=== PATIENT | male | born 1995 | race African-American/Black ===

== ENCOUNTER 2020-02-24 01:53 | Inpatient (IN) | payer MEDICAID, SELFPAY ==
[~2020-02-24] VITALS: Ht 175.3 cm; Wt 74.8 kg
[2020-02-24 02:00] VITALS: BP 138/79
[2020-02-24 03:03] LABS: APPEARANCE,URINE CLEAR (CLEAR); BILIRUBIN,URINE NEGATIVE (NEGATIVE); BLOOD, URINE NEGATIVE (NEGATIVE); COLOR,URINE YELLOW (YELLOW); LEUKOCYTE ESTERASE ,URINE NEGATIVE (NEGATIVE); NITRITE, URINE NEGATIVE (NEGATIVE); UGLUCOSE NEGATIVE (NEGATIVE)
[2020-02-24 03:03] LABS: ALBUMIN 4.5 g/dL (3.4-5.0); ANION GAP 12.6 (8-16); BASOPHILS % (AUTO) 0.7 % (0.0-2.0); CARBON DIOXIDE 30.3 mmol/L (21-32); CREATININE 1.1 mg/dL (0.6-1.3); EOSINOPHILS # (AUTO) 0.2 K/uL (0-0.4); EOSINOPHILS % (AUTO) 2.6 % (0.0-4.0); HEMATOCRIT 45.1 % (36-52); HEMOGLOBIN 14.7 g/dL (12.0-18.0); LYMPHOCYTES # (AUTO) 1.6 K/uL (2.0-11.5); LYMPHOCYTES % (AUTO) 23.2 % (20.5-51.1); MEAN CORPUSCULAR HEMOGLOBIN 27 pg (27-31); MEAN CORPUSCULAR HGB CONC 33 g/dL (33-37); MEAN CORPUSCULAR VOLUME 83.2 fL (80-94); MONOCYTES # (AUTO) 0.9 K/uL (0.8-1.0); MONOCYTES % (AUTO) 12.9 % (1.7-9.3); NEUTROPHILS # (AUTO) 4.1 K/uL (1.8-7.7); NEUTROPHILS % (AUTO) 60.6 % (42.2-75.2); PLATELET COUNT (AUTO) 352 K/uL (140-450); POTASSIUM 3.9 mmol/L (3.5-5.1); RED BLOOD CELL COUNT(AUTO) 5.42 MIL/uL (4.20-6.10); RED CELL DISTRIBUTION WIDTH 14.5 % (11.6-13.7); THYROID STIMULATING HORMONE 1.41 uIU/mL (0.34-3.74); TOTAL BILIRUBIN 0.8 mg/dL (0.0-1.0); WHITE BLOOD COUNT (AUTO) 6.8 K/uL (4.8-10.8)
[2020-02-24 03:11] LABS: BARBITURATE, URINE NEGATIVE ng/ml (NEG <=200); BENZODIAZEPINE, URINE NEGATIVE ng/mL (NEG <=200); CANNABINOID, URINE NEGATIVE ng/mL (NEG <=50); COCAINE, URINE POSITIVE ng/mL (NEG <=300); OPIATE, URINE NEGATIVE ng/mL (NEG <=2000); PHENCYCLIDINE SCREEN,URINE NEGATIVE ng/mL (NEG <=25)
[2020-02-24] MEDS ORDERED: OLANZapine 5 MG TAB PO SCH ×2 (04:15→21:00)
[2020-02-24] MEDS ORDERED: OLANZapine 5 MG ODT ONE (04:30)
[2020-02-24] MEDS ORDERED: OLANZapine 5 MG ODT SL ONE (04:30)
[2020-02-24] MEDS: OLANZapine 5 MG TAB PO SCH (20:59)
[2020-02-25 04:15] VITALS: BP 108/62
[2020-02-25 08:00] VITALS: BP 110/68
[2020-02-25] MEDS: OLANZapine 5 MG TAB PO SCH ×2 (09:06→21:08)
[2020-02-25] MEDS: ESCITALOPRAM 20 MG TAB PO SCH (09:06)
[2020-02-25] MEDS: NACL 0.9% 1,000 ML IV SCH (15:09)
[2020-02-25] MEDS ORDERED: MORPHINE SULFATE 2 MG/ML SYR IVP PRN (15:10)
[2020-02-25] MEDS ORDERED: LORazepam 2 MG/ML VIAL IM/IVP PRN (15:10)
[2020-02-25] MEDS ORDERED: ACETAMINOPHEN 325 MG TAB PO PRN (15:10)
[2020-02-25] MEDS ORDERED: ZOLPIDEM 5 MG TAB PO PRN (15:10)
[2020-02-25] MEDS ORDERED: DOCUSATE SODIUM 100 MG GELCAP PO PRN (15:10)
[2020-02-25] MEDS ORDERED: HYDROcodone/APAP 5/325 MG 1 TAB TAB PO PRN (15:10)
[2020-02-25] MEDS ORDERED: ONDANSETRON 4 MG/2 ML VIAL IM/IVP PRN (15:10)
[2020-02-25] MEDS ORDERED: POTASSIUM CHLORIDE 10 MEQ TABER PO PRN (15:15)
[2020-02-25] MEDS ORDERED: MAG SULF 2000 MG/WATER PREMIX 50 ML IV PRN (15:15)
[2020-02-25 16:00] VITALS: BP 118/69
[2020-02-26] VITALS: BP 125/71
[2020-02-26] MEDS: NACL 0.9% 1,000 ML IV SCH (07:49)
[2020-02-26 08:33] VITALS: BP 101/44
[2020-02-26] MEDS: OLANZapine 5 MG TAB PO SCH ×2 (12:30→21:57)
[2020-02-26] MEDS: ESCITALOPRAM 20 MG TAB PO SCH (12:31)
[2020-02-26 16:30] VITALS: BP 118/67
[2020-02-27] VITALS: BP 103/58
[2020-02-27] MEDS: NACL 0.9% 1,000 ML IV SCH ×2 (00:29→16:02)
[2020-02-27 08:00] VITALS: BP 95/50
[2020-02-27] MEDS: ESCITALOPRAM 20 MG TAB PO SCH (08:24)
[2020-02-27] MEDS: OLANZapine 5 MG TAB PO SCH ×2 (08:24→21:55)
[2020-02-27] MEDS ORDERED: METOCLOPRAMIDE 10 MG/2 ML INJ VIAL IVP PRN (10:30)
[2020-02-27 16:00] VITALS: BP 111/58
[2020-02-28] VITALS: BP 140/81
[2020-02-28] MEDS: OLANZapine 5 MG TAB PO SCH ×2 (09:00→22:02)
[2020-02-28] MEDS: ESCITALOPRAM 20 MG TAB PO SCH (09:00)
[2020-02-28] MEDS: NACL 0.9% 1,000 ML IV SCH (09:49)
[2020-02-28 11:42] VITALS: BP 115/64
[2020-02-28 16:00] VITALS: BP 117/61
[2020-02-28] MEDS: traZODone 50 MG TAB PO SCH (22:02)
[2020-02-29] VITALS: BP 106/52
[2020-02-29] MEDS: NACL 0.9% 1,000 ML IV SCH ×2 (02:29→19:09)
[2020-02-29 08:00] VITALS: BP 124/63
[2020-02-29] MEDS: ESCITALOPRAM 20 MG TAB PO SCH (09:00)
[2020-02-29 16:00] VITALS: BP 124/63
[2020-02-29] MEDS: OLANZapine 5 MG TAB PO SCH (20:22)
[2020-02-29] MEDS: traZODone 50 MG TAB PO SCH (20:22)
[2020-03-01] VITALS: BP 109/67
[2020-03-01 08:00] VITALS: BP 107/54
[2020-03-01] MEDS: ESCITALOPRAM 20 MG TAB PO SCH (08:58)
[2020-03-01] MEDS: NACL 0.9% 1,000 ML IV SCH (11:49)
[2020-03-01 16:00] VITALS: BP 109/67
[2020-03-01 21:05] VITALS: BP 109/67
[2020-03-01] MEDS: traZODone 50 MG TAB PO SCH (21:05)
[2020-03-01] MEDS: OLANZapine 5 MG TAB PO SCH (21:08)
[2020-03-01] MEDS ORDERED: OLAN5TAB1 PO (21:19)
[2020-03-01] MEDS ORDERED: TRAZ-343 PO ×5 (21:34→22:02)
[2020-03-01] MEDS ORDERED: OLAN20TA1 PO (21:36)
[2020-03-01] MEDS ORDERED: ESCI10TA PO (21:37)
[2020-03-01] MEDS ORDERED: ZOLP5TAB1 PO (21:41)
[2020-03-01] MEDS ORDERED: DOCU-299 PO (21:43)
[2020-03-01] MEDS ORDERED: ACET-2619 PO ×2 (21:45→22:28)
[2020-03-01 21:46] VITALS: BP 109/67
== END 2020-03-01 23:45 | DRG 776 ==
LOC: EDBD 01:53 → MED 01:53 → MTU 02-25 02:58
DX: F15.10 Other stimulant abuse, uncomplicated (principal); G92 Toxic encephalopathy; F32.9 Major depressive disorder, single episode, unspecified; E86.0 Dehydration; F12.10 Cannabis abuse, uncomplicated; F19.10 Other psychoactive substance abuse, uncomplicated; R45.851 Suicidal ideations; R44.1 Visual hallucinations; Z91.19 Patient's noncompliance with other medical treatment and regimen; Z20.828 Contact with and (suspected) exposure to other viral communicable diseases
CPT/HCPCS: 36415; 71045; 80053; 80305; 81003; 84443; 85025; 87081; 99285; Q0092; U0003-CS